=== PATIENT | male | born 1965 | race African-American/Black ===

== ENCOUNTER 2021-06-24 12:39 | Inpatient (IN) | payer MEDICAID ==
[~2021-06-24] VITALS: Ht 175.3 cm; Wt 71.9 kg
[2021-06-24] MEDS ORDERED: CLONIDINE 0.2MG TABLET PO ONE (13:00)
[2021-06-24 13:34] LABS: BASOPHILS % 0.6 % (0.0-2.0); EOSINOPHILS % 0.9 % (0.0-5.0); HEMATOCRIT. 44.4 % (42.0-52.0); HEMOGLOBIN. 14.5 g/dL (14.0-18.0); LYMPHOCYTES % 21.4 % (20.0-50.0); MEAN CORPUSCULAR HEMOGLOBIN 28.6 pg (28.0-32.0); MEAN CORPUSCULAR VOLUME 87.7 fL (80.0-94.0); MONOCYTES % 5.3 % (2.0-8.0); NEUTROPHILS % 71.8 % (40.0-76.0); PLATELET 224 x1000/uL (130-400); RED BLOOD CELL COUNT 5.06 mill/uL (4.7-6.1)
[2021-06-24 13:37] LABS: CHLORIDE 112 mEq/L (98-107)
[2021-06-24 13:42] LABS: ETHANOL BLOOD < 10 mg/dL
[2021-06-24] MEDS ORDERED: ASPIRIN 325MG EC TABLET PO ONE (17:00)
[2021-06-24] MEDS ORDERED: HYDRALAZINE 20MG/ML VIAL IV ONE (17:00)
[2021-06-24 17:47] LABS: *AMPHETAMINES SCREEN URINE PRESUMTIVE POSITIVE (NEGATIVE); *BARBITURATES SCREEN URINE NEGATIVE (NEGATIVE); *BENZODIAZEPINES SCREEN URINE NEGATIVE (NEGATIVE)
[2021-06-24 17:48] LABS: *COCAINE SCREEN URINE NEGATIVE (NEGATIVE); CANNABINOID URINE SCREEN PRESUMTIVE POSITIVE (NEGATIVE); METHADONE URINE SCREEN NEGATIVE (NEGATIVE); OPIATES URINE SCREEN NEGATIVE (NEGATIVE); PHENCYCLIDINE URINE SCREEN NEGATIVE (NEGATIVE)
[2021-06-24 18:34] VITALS: BP 199/121
[2021-06-24 18:49] VITALS: BP 199/121
[2021-06-24] MEDS ORDERED: ACETAMINOPHEN 325MG TABLET PO PRN ×2 (20:15)
[2021-06-24] MEDS ORDERED: LABETALOL 5MG/ML SYR 20 MG/4 ML SYRINGE IV PRN (20:15)
[2021-06-24] MEDS ORDERED: ONDANSETRON HCL 4MG/2ML INJ IV PRN (20:15)
[2021-06-24] MEDS ORDERED: IPRATROPIUM/ALBUTEROL 0.5-3(2.5)MG/3ML NEB HHN PRN (20:15)
[2021-06-24] MEDS ORDERED: HYDROCODONE/ACETAMINOPHEN 5/325MG TABLET PO PRN (20:15)
[2021-06-24] MEDS ORDERED: DOCUSATE SODIUM 100MG CAPSULE PO PRN (20:15)
[2021-06-24] MEDS ORDERED: LORAZEPAM 0.5MG TABLET PO PRN (20:15)
[2021-06-24 20:30] VITALS: BP 215/132
[2021-06-24] MEDS ORDERED: NALOXONE HCL 0.4MG/ML VIAL IV PRN (20:30)
[2021-06-24 21:03] VITALS: BP 191/139
[2021-06-24 22:01] VITALS: BP 207/127
[2021-06-24 22:14] VITALS: BP 185/94
[2021-06-24 23:51] LABS: CREATINE KINASE MB FRACTION 8.9 ng/mL (0.5-3.6)
[2021-06-25] VITALS (17 sets, daily range): BP systolic 126–210; BP diastolic 71–136
[2021-06-25] MEDS: HYDRALAZINE 20MG/ML VIAL IV PRN ×3 (00:53→17:59)
[2021-06-25 07:17] LABS: BASOPHILS % 0.3 % (0.0-2.0); EOSINOPHILS % 0.3 % (0.0-5.0); HEMATOCRIT. 40.8 % (42.0-52.0); HEMOGLOBIN. 13.7 g/dL (14.0-18.0); LYMPHOCYTES % 19.8 % (20.0-50.0); MEAN CORPUSCULAR HEMOGLOBIN 29.3 pg (28.0-32.0); MEAN CORPUSCULAR VOLUME 87.5 fL (80.0-94.0); MEAN PLATELET VOLUME 9.3 fl (7.4-10.4); MONOCYTES % 5.2 % (2.0-8.0); NEUTROPHILS % 74.4 % (40.0-76.0); PLATELET 195 x1000/uL (130-400); RED BLOOD CELL COUNT 4.67 mill/uL (4.7-6.1)
[2021-06-25] MEDS: ARIPIPRAZOLE 5MG TABLET PO SCH (14:04)
[2021-06-25] MEDS: FLUOXETINE HCL 10 MG CAPSULE PO SCH (14:04)
[2021-06-25] MEDS: AMLODIPINE 5MG TABLET PO SCH ×2 (15:03→20:23)
[2021-06-25] MEDS: HYDRALAZINE HCL 25MG TABLET PO SCH ×2 (15:04→20:24)
[2021-06-26] VITALS (18 sets, daily range): BP systolic 130–176; BP diastolic 82–114
[2021-06-26] MEDS: HYDRALAZINE 20MG/ML VIAL IV PRN ×2 (00:12→07:01)
[2021-06-26] MEDS: CLONIDINE 0.1MG TABLET PO PRN (02:15)
[2021-06-26] MEDS: ARIPIPRAZOLE 5MG TABLET PO SCH (08:18)
[2021-06-26] MEDS: FLUOXETINE HCL 10 MG CAPSULE PO SCH (08:18)
[2021-06-26] MEDS: HYDRALAZINE HCL 25MG TABLET PO SCH ×2 (08:18→20:19)
[2021-06-26] MEDS: AMLODIPINE 5MG TABLET PO SCH ×2 (08:19→20:20)
[2021-06-26] MEDS: CARVEDILOL 3.125 MG TABLET PO SCH ×2 (10:55→20:20)
[2021-06-26 13:50] LABS: PHOSPHORUS 4.1 mg/dL (2.5-4.9)
[2021-06-26 15:14] LABS: BASOPHILS % 0.4 % (0.0-2.0); EOSINOPHILS % 0.5 % (0.0-5.0); HEMATOCRIT. 36.8 % (42.0-52.0); HEMOGLOBIN. 12.4 g/dL (14.0-18.0); LYMPHOCYTES % 15.6 % (20.0-50.0); MEAN CORPUSCULAR HEMOGLOBIN 29.8 pg (28.0-32.0); MEAN CORPUSCULAR VOLUME 88.6 fL (80.0-94.0); MEAN PLATELET VOLUME 8.8 fl (7.4-10.4); MONOCYTES % 5.7 % (2.0-8.0); NEUTROPHILS % 77.8 % (40.0-76.0); PLATELET 181 x1000/uL (130-400); RED BLOOD CELL COUNT 4.15 mill/uL (4.7-6.1); RED CELL DISTRIBUTION WIDTH 14.2 % (11.6-14.6)
[2021-06-26 18:02] LABS: CLARITY URINE CLEAR (CLEAR); COLOR URINE YELLOW (YELLOW); KETONES URINE NEGATIVE (NEGATIVE); LEUKOCYTE ESTERASE URINE NEGATIVE (NEGATIVE); NITRITE URINE NEGATIVE (NEGATIVE); OCCULT BLOOD URINE NEGATIVE (NEGATIVE); PROTEIN URINE 3+ (NEGATIVE); SPECIFIC GRAVITY URINE 1.016 (1.005-1.030); UROBILINOGEN URINE 0.2 E.U./dL (0.2-1.0)
[2021-06-27] VITALS (14 sets, daily range): BP systolic 128–169; BP diastolic 70–106
[2021-06-27] MEDS: ARIPIPRAZOLE 5MG TABLET PO SCH (07:59)
[2021-06-27] MEDS: AMLODIPINE 5MG TABLET PO SCH ×2 (07:59→21:21)
[2021-06-27] MEDS: FLUOXETINE HCL 10 MG CAPSULE PO SCH (07:59)
[2021-06-27] MEDS: CARVEDILOL 3.125 MG TABLET PO SCH ×2 (08:00→21:21)
[2021-06-27] MEDS: HYDRALAZINE HCL 25MG TABLET PO SCH ×2 (08:00→21:21)
[2021-06-27 15:42] LABS: BASOPHILS % 0.3 % (0.0-2.0); EOSINOPHILS % 1.2 % (0.0-5.0); HEMATOCRIT. 35.6 % (42.0-52.0); HEMOGLOBIN. 11.8 g/dL (14.0-18.0); LYMPHOCYTES % 18.6 % (20.0-50.0); MEAN CORPUSCULAR HEMOGLOBIN 29.2 pg (28.0-32.0); MEAN CORPUSCULAR VOLUME 88.3 fL (80.0-94.0); MEAN PLATELET VOLUME 9.2 fl (7.4-10.4); MONOCYTES % 7.1 % (2.0-8.0); NEUTROPHILS % 72.8 % (40.0-76.0); PLATELET 192 x1000/uL (130-400); RED BLOOD CELL COUNT 4.03 mill/uL (4.7-6.1); RED CELL DISTRIBUTION WIDTH 13.9 % (11.6-14.6)
[2021-06-27 15:54] LABS: PHOSPHORUS 3.4 mg/dL (2.5-4.9)
[2021-06-27] MEDS: CLONIDINE 0.1MG TABLET PO PRN (17:38)
[2021-06-27] MEDS ORDERED: MAGNESIUM 1 G PREMIX 100 ML IV NR (20:00)
[2021-06-27] MEDS: LORAZEPAM 0.5MG TABLET PO PRN (21:21)
[2021-06-28 00:09] VITALS: BP 149/77
[2021-06-28 04:00] VITALS: BP 157/99
[2021-06-28 07:03] VITALS: BP 159/112
[2021-06-28 10:03] LABS: BASOPHILS % 0.3 % (0.0-2.0); EOSINOPHILS % 1.4 % (0.0-5.0); HEMATOCRIT. 37.9 % (42.0-52.0); HEMOGLOBIN. 12.5 g/dL (14.0-18.0); LYMPHOCYTES % 24.1 % (20.0-50.0); MEAN CORPUSCULAR HEMOGLOBIN 29.5 pg (28.0-32.0); MEAN CORPUSCULAR VOLUME 89.8 fL (80.0-94.0); MEAN PLATELET VOLUME 8.7 fl (7.4-10.4); MONOCYTES % 4.4 % (2.0-8.0); NEUTROPHILS % 69.8 % (40.0-76.0); PLATELET 197 x1000/uL (130-400); RED BLOOD CELL COUNT 4.22 mill/uL (4.7-6.1); RED CELL DISTRIBUTION WIDTH 13.7 % (11.6-14.6)
[2021-06-28] MEDS: CARVEDILOL 3.125 MG TABLET PO SCH ×2 (10:06→21:09)
[2021-06-28] MEDS: AMLODIPINE 5MG TABLET PO SCH ×2 (10:06→21:09)
[2021-06-28] MEDS: FLUOXETINE HCL 10 MG CAPSULE PO SCH (10:06)
[2021-06-28] MEDS: ARIPIPRAZOLE 5MG TABLET PO SCH (10:06)
[2021-06-28] MEDS: HYDRALAZINE HCL 25MG TABLET PO SCH ×2 (10:06→21:09)
[2021-06-28 10:19] LABS: PHOSPHORUS 2.9 mg/dL (2.5-4.9)
[2021-06-28 12:00] VITALS: BP 140/90
[2021-06-28 16:00] VITALS: BP 154/101
[2021-06-28 20:00] VITALS: BP 142/77
[2021-06-29] VITALS: BP 139/92
[2021-06-29 04:00] VITALS: BP 129/96
[2021-06-29 08:04] VITALS: BP 147/103
[2021-06-29] MEDS: FLUOXETINE HCL 10 MG CAPSULE PO SCH (08:07)
[2021-06-29] MEDS: ARIPIPRAZOLE 5MG TABLET PO SCH (08:07)
[2021-06-29] MEDS: HYDRALAZINE HCL 25MG TABLET PO SCH (08:07)
[2021-06-29] MEDS: AMLODIPINE 5MG TABLET PO SCH (08:07)
[2021-06-29] MEDS: CARVEDILOL 3.125 MG TABLET PO SCH (08:07)
[2021-06-29] MEDS: LORAZEPAM 0.5MG TABLET PO PRN (08:54)
[2021-06-29] MEDS ORDERED: HALOPERIDOL LACTATE 5MG/ML VIAL IM PRN (09:15)
[2021-06-29] MEDS ORDERED: LORAZEPAM 2MG/ML CPJ IM PRN (11:30)
[2021-06-30] MEDS ORDERED: FLUOXETINE HCL 10 MG CAPSULE PO SCH (09:00)
== END 2021-06-29 14:40 | disposition left against medical advice (07) | DRG 812 ==
LOC: EDBD 12:39 → ER 12:39 → 3WST 16:50 → EDBEDREQ 16:52 → EDBEDREQSVC 16:52 → EDBEDREQTM 16:52 → ENRESERV 17:13 → EDBEDREQ 17:56 → 6WST 06-28 06:57
PROVIDERS: ADMIT Internal Medicine; ATTEND Internal Medicine
PROC: 4A10X4Z Monitoring of Central Nervous Electrical Activity, External Approach (ICD-10-PCS; principal; 2021-06-25)
DX: T43.621A Poisoning by amphetamines, accidental (unintentional), initial encounter (principal); G92.8 Other toxic encephalopathy; I21.4 Non-ST elevation (NSTEMI) myocardial infarction; E43 Unspecified severe protein-calorie malnutrition; N17.9 Acute kidney failure, unspecified; I50.9 Heart failure, unspecified; F33.1 Major depressive disorder, recurrent, moderate; F15.10 Other stimulant abuse, uncomplicated; F20.9 Schizophrenia, unspecified; I13.0 Hypertensive heart and chronic kidney disease with heart failure and stage 1 through stage 4 chronic kidney disease, or unspecified chronic kidney disease; G47.00 Insomnia, unspecified; I16.1 Hypertensive emergency; N18.9 Chronic kidney disease, unspecified; Z82.49 Family history of ischemic heart disease and other diseases of the circulatory system; Y92.89 Other specified places as the place of occurrence of the external cause; Z68.23 Body mass index [BMI] 23.0-23.9, adult
CPT/HCPCS: 36415; 70544; 70551; 71045; 76770; 80048; 80053; 80305; 80320; 81003; 82550; 82553; 83735; 83880; 84100; 84484; 85025; 93005; 93306; 97161; 99291; J0360; J3475; J3490; G0480

== ENCOUNTER 2021-07-24 12:00 | Emergency (ER) | payer MEDICAID ==
[~2021-07-24] VITALS: Ht 175.3 cm; Wt 86.0 kg
[2021-07-24] MEDS ORDERED: LABETALOL HCL VIAL 20 MG/4 ML VIAL IV ONE (12:30)
[2021-07-24] MEDS ORDERED: ONDANSETRON HCL 4MG/2ML INJ IV STA (12:30)
[2021-07-24] MEDS ORDERED: LABETALOL 5MG/ML SYR 20 MG/4 ML SYRINGE IV NR (12:45)
[2021-07-24 12:47] LABS: BASOPHILS % 0.8 % (0.0-2.0); EOSINOPHILS % 2.2 % (0.0-5.0); HEMATOCRIT. 38.7 % (42.0-52.0); HEMOGLOBIN. 12.8 g/dL (14.0-18.0); LYMPHOCYTES % 26.3 % (20.0-50.0); MEAN CORPUSCULAR HEMOGLOBIN 29.2 pg (28.0-32.0); MEAN CORPUSCULAR VOLUME 88.4 fL (80.0-94.0); MEAN PLATELET VOLUME 8.5 fl (7.4-10.4); MONOCYTES % 6.9 % (2.0-8.0); NEUTROPHILS % 63.8 % (40.0-76.0); PLATELET 294 x1000/uL (130-400); RED BLOOD CELL COUNT 4.38 mill/uL (4.7-6.1)
[2021-07-24 12:55] LABS: CHLORIDE 113 mEq/L (98-107)
[2021-07-24] MEDS ORDERED: HYDRALAZINE 20MG/ML VIAL IV NR (14:15)
[2021-07-24 20:34] VITALS: BP 155/88
== END 2021-07-24 20:57 | disposition short-term general hospital (02) ==
LOC: ER 12:09
DX: R07.89 Other chest pain (principal); I12.9 Hypertensive chronic kidney disease with stage 1 through stage 4 chronic kidney disease, or unspecified chronic kidney disease; N18.9 Chronic kidney disease, unspecified; F20.9 Schizophrenia, unspecified
CPT/HCPCS: 36415; 70450; 71045; 74176; 80053; 83880; 84484; 85025; 93005; 96374; 96375; 99291; J0360; J2405; J3490

== ENCOUNTER 2021-07-31 15:41 | Emergency (ER) | payer MEDICAID ==
[~2021-07-31] VITALS: Ht 177.8 cm; Wt 90.0 kg
[2021-07-31] MEDS: OLANZAPINE 10MG TABLET PO SCH (17:15)
[2021-07-31] MEDS ORDERED: LORAZEPAM 1MG TABLET PO ONE (17:15)
[2021-07-31 17:51] LABS: BASOPHILS % 0.8 % (0.0-2.0); EOSINOPHILS % 1.6 % (0.0-5.0); HEMOGLOBIN. 10.6 g/dL (14.0-18.0); LYMPHOCYTES % 20.3 % (20.0-50.0); MEAN CORPUSCULAR HEMOGLOBIN 29.3 pg (28.0-32.0); MEAN CORPUSCULAR VOLUME 88.8 fL (80.0-94.0); MEAN PLATELET VOLUME 8.8 fl (7.4-10.4); MONOCYTES % 7.9 % (2.0-8.0); NEUTROPHILS % 69.4 % (40.0-76.0); PLATELET 269 x1000/uL (130-400); RED CELL DISTRIBUTION WIDTH 14.9 % (11.6-14.6)
[2021-07-31 17:58] LABS: CHLORIDE 116 mEq/L (98-107)
[2021-07-31 18:06] LABS: ETHANOL BLOOD < 10 mg/dL
[2021-07-31 19:00] LABS: CLARITY URINE CLEAR (CLEAR); COLOR URINE YELLOW (YELLOW); KETONES URINE NEGATIVE (NEGATIVE); LEUKOCYTE ESTERASE URINE NEGATIVE (NEGATIVE); NITRITE URINE NEGATIVE (NEGATIVE); OCCULT BLOOD URINE NEGATIVE (NEGATIVE); PROTEIN URINE 4+ (NEGATIVE); SPECIFIC GRAVITY URINE 1.017 (1.005-1.030); UROBILINOGEN URINE 0.2 E.U./dL (0.2-1.0)
[2021-07-31 19:11] LABS: *AMPHETAMINES SCREEN URINE NEGATIVE (NEGATIVE); *BARBITURATES SCREEN URINE NEGATIVE (NEGATIVE); *BENZODIAZEPINES SCREEN URINE NEGATIVE (NEGATIVE); *COCAINE SCREEN URINE NEGATIVE (NEGATIVE); CANNABINOID URINE SCREEN PRESUMTIVE POSITIVE (NEGATIVE); METHADONE URINE SCREEN NEGATIVE (NEGATIVE); OPIATES URINE SCREEN NEGATIVE (NEGATIVE); PHENCYCLIDINE URINE SCREEN NEGATIVE (NEGATIVE)
[2021-08-01] MEDS: OLANZAPINE 10MG TABLET PO SCH (09:00)
[2021-08-01 11:25] VITALS: BP 135/89
== END 2021-08-01 11:27 | disposition home or self-care (01) ==
LOC: ER 15:41
DX: F23 Brief psychotic disorder (principal); R45.851 Suicidal ideations; I10 Essential (primary) hypertension; Z20.822 Contact with and (suspected) exposure to COVID-19
CPT/HCPCS: 36415; 80053; 80305; 80307; 80320; 80329; 81003; 85025; 99285; C9803; U0003; U0005; G0480

== ENCOUNTER 2021-11-27 10:28 | Emergency (ER) | payer MEDICAID ==
[~2021-11-27] VITALS: Ht 175.3 cm; Wt 81.0 kg
[2021-11-27 10:40] VITALS: BP 190/152
[2021-11-27 13:15] LABS: BASOPHILS % 0.3 % (0.0-2.0); EOSINOPHILS % 1.2 % (0.0-5.0); HEMATOCRIT. 39.2 % (42.0-52.0); HEMOGLOBIN. 12.7 g/dL (14.0-18.0); LYMPHOCYTES % 31.1 % (20.0-50.0); MEAN CORPUSCULAR VOLUME 89.4 fL (80.0-94.0); MEAN PLATELET VOLUME 9.2 fl (7.4-10.4); MONOCYTES % 6.2 % (2.0-8.0); NEUTROPHILS % 61.2 % (40.0-76.0); PLATELET 218 x1000/uL (130-400); RED BLOOD CELL COUNT 4.38 mill/uL (4.7-6.1); RED CELL DISTRIBUTION WIDTH 14.5 % (11.6-14.6)
[2021-11-27 13:28] LABS: CHLORIDE 110 mEq/L (98-107)
[2021-11-27 13:36] LABS: ETHANOL BLOOD < 10 mg/dL
== END 2021-11-27 20:25 | disposition home or self-care (01) ==
LOC: ER 10:28
DX: F23 Brief psychotic disorder (principal); F32.A Depression, unspecified; I10 Essential (primary) hypertension; R45.851 Suicidal ideations
CPT/HCPCS: 36415; 80053; 80320; 85025; 99283; G0480